=== PATIENT | female | born 1980 | race African-American/Black ===

== ENCOUNTER 2023-03-20 15:20 | Outpatient (CLI) | payer MEDICAID, SELFPAY ==
--- NOTE | 2023-03-20 15:36 | MM_ITS ---
WS: [id number] BILATERAL 3D TOMOSYNTHESIS DIGITAL DIAGNOSTIC MAMMOGRAPHY WITH CAD CLINICAL INFORMATION: ACACIA BR LUMPS HISTORY: Bilateral breast lumps COMPARISON: None. TECHNIQUE: Bilateral CC, MLO, and ML views. FINDINGS: The breasts are composed of extremely dense tissue, which can limit the detection of small underlying mass lesions. Punctate and clustered calcifications upper outer RIGHT quadrant RIGHT breast posterio r depth. These are probably benign. Recommend 6-month follow-up RIGHT breast diagnostic mammography w ith spot magnification views. Nodular partially obscured density deep to the RIGHT areola measuring 2.4 cm. Ultrasound is pending. ULTRASOUND BREAST BILATERAL TECHNIQUE: Ultrasound bilateral breast focused area of concern. CLINICAL INFORMATION: ACACIA BR LUMPS FINDINGS: Multiple cystic and solid lesions bilaterally with complex breast cysts. RIGHT BREAST: Indeterminant solid appearing lesion RIGHT breast measuring 2.8 x 1.4 x 2.8 cm at the areola. This ma y represent a fibroadenoma but indeterminate and recommend further evaluation with ultrasound-guided biopsy. Complex 1.1 x 0.6 x 1.0 cm lesion at the 10 o'clock position 2 cm from the nipple. Similar-appearing lesion at the 9 o'clock position 4 cm from the nipple. Complex cyst at the 9 o'clock position 2 cm from the nipple measuring 0.7 x 0.6 x 0.9 cm LEFT BREAST: Complex echogenic lesion at the 1 o'clock position 1 cm from the nipple measuring 1.5 x 0.6 x 1.6 cm Complex lesion at the 1 o'clock position 3 cm from the nipple measuring 0.8 x 0.8 x 0.6 cm Additional complex lesion at the 1 o'clock position 3 cm from the nipple measuring 1.0 x 0.7 x 1.1 cm Complex lesion at the 2 o'clock position 2 cm from the nipple with internal echogenic debris measurin g 1.0 x 1.0 x 0.9 cm IMPRESSION: MM/[place] [id number] BI-RADS: 4-Suspicious Finding-Biopsy Should Be Considered FOLLOW UP: US Guided Biopsy Recommended Recommend ultrasound-guided biopsy of the RIGHT subareolar lesion described abo ve. Recommend 6-month bilateral breast ultrasound follow-up of the bilateral comple x and complex cystic lesions bilaterally described above. In addition, recommen d RIGHT breast diagnostic mammography with spot magnification views of the uppe r outer breast calcifications at that time to confirm stability.
== END 2023-03-20 15:21 | disposition home or self-care (01) ==
PROVIDERS: PCP Nurse Practitioner Family; Visit Provider Nurse Practitioner Family
DX: N63.11 Unspecified lump in the right breast, upper outer quadrant (principal); N63.42 Unspecified lump in left breast, subareolar
CPT/HCPCS: 76642; 77062; G0279